=== PATIENT | male | born 1935 | race Caucasian/White ===

== ENCOUNTER 2018-07-03 09:14 | Emergency (ER) | payer MEDICARE, OTHER ==
--- NOTE | 2018-07-03 09:27 | Emergency Department Record ---
History of Present Illness - General Chief Complaint: Fall Injury Stated Complaint: FALL Time Seen by Provider: 07/03/18 09:20 Source: Patient, Family Mode of Arrival: Ambulatory Limitations: No limitations - History of Present Illness Initial Comments: 82 yo male presents after a one step fall. He hit he left eyebrow region. No LOC. No blood thinners. No headache, neck pain, confusion, other injuries. His tetanus is not up to date. No recent health concerns or changes in his baseline health. MD Complaint: Fall -: Minutes(s) Fall From: Down stairs (#) (1) When Fall Occurred: Just prior to arrival Fall Witnessed: Yes, by family Place Fall Occurred: Home Loss of Consciousness: None Prolonged Down Time?: No Symptoms Prior to Fall: None Location: Head Severity: Mild Quality: Aching Context: Tripped/slipped Associated Symptoms: Denies - Berclair Coma Scale Eye Response: (4) Open spontaneously Motor Response: (6) Obeys commands Verbal Response: (5) Oriented Rhett Total: 15 - Related Data Home Medications Medication Instructions Recorded Confirmed Last Taken Amlodipine Besylate [Norvasc] 10 mg PO DAILY 07/03/18 07/03/18 1 Day Ago ~07/02/18 Aspirin 81 mg PO DAILY 07/03/18 07/03/18 1 Day Ago ~07/02/18 Atorvastatin Calcium [Lipitor] 10 mg PO DAILY 07/03/18 07/03/18 1 Day Ago ~07/02/18 Calcium Polycarbophil [Fiber] 2 tab PO DAILY 07/03/18 07/03/18 1 Day Ago ~07/02/18 Dutasteride [Avodart] 0.5 mg PO DAILY 07/03/18 07/03/18 1 Day Ago ~07/02/18 Fish Oil/Dha/Epa [Fish Oil 1,200 1 each PO DAILY 07/03/18 07/03/18 1 Day Ago mg Fish Oil] ~07/02/18 Fluticasone Propionate [24 Hour 9.9 ml NS DAILY 07/03/18 07/03/18 1 Day Ago Allergy] ~07/02/18 Fosinopril Sodium [Monopril] 20 mg PO BID 07/03/18 07/03/18 1 Day Ago ~07/02/18 Hydralazine HCl 25 mg PO BID 07/03/18 07/03/18 1 Day Ago ~07/02/18 Hydrochlorothiazide [Hctz] 25 mg PO DAILY 07/03/18 07/03/18 1 Day Ago ~07/02/18 Isosorbide Mononitrate [Imdur] 60 mg PO DAILY 07/03/18 07/03/18 1 Day Ago ~07/02/18 Metformin HCl 500 mg PO DAILY 07/03/18 07/03/18 1 Day Ago ~07/02/18 Metoprolol Tartrate 25 mg PO BID 07/03/18 07/03/18 1 Day Ago ~07/02/18 Multivit-Min/FA/Lycopen/Lutein 1 each PO DAILY 07/03/18 07/03/18 1 Day Ago [Centrum Silver Tablet] ~07/02/18 Naproxen Sodium [Aleve] 220 mg PO QHS 07/03/18 07/03/18 1 Day Ago ~07/02/18 Omeprazole [Prilosec] 20 mg PO DAILY 07/03/18 07/03/18 1 Day Ago ~07/02/18 Allergies Allergy/AdvReac Type Severity Reaction Status Date / Time No Known Drug Allergies Allergy Verified 07/03/18 09:24 Review of Systems Constitutional: Denies: Chills, Fever, Malaise, Weakness Eyes: Denies: Eye discharge, Eye pain, Photophobia, Vision change ENT: Denies: Congestion, Throat pain Respiratory: Denies: Cough, Dyspnea Cardiovascular: Denies: Chest pain, Palpitations, Syncope Endocrine: Denies: Fatigue, Polydipsia, Polyuria Gastrointestinal: Denies: Abdominal pain, Diarrhea, Nausea, Vomiting Genitourinary: Denies: Dysuria, Frequency, Hematuria Musculoskeletal: Denies: Arthralgia, Back pain, Joint swelling, Myalgia Skin: Denies: Bruising, Change in color, Rash Neurological: Denies: Headache Psychiatric: Denies: Anxiety Hematological/Lymphatic: Denies: Easy bleeding, Easy bruising Physical Exam - General General Appearance: Alert, Oriented x3, Cooperative, No acute distress Limitations: No limitations - Head Head exam: negative: Atraumatic, Normal inspection Head exam detail: Laceration Image of Face/Head: 1 - 3cm somewhat irregular laceration, no FB, clean 2 - 1cm y shape extension on the lid, superficial - Eye Eye exam: Normal appearance, PERRL, EOMI, Periorbital tenderness (mild). negative: Conjunctival injection, Periorbital swelling, Scleral icterus Pupils: Normal accommodation. negative: Irregular, Unequal - ENT ENT exam: Normal exam Ear exam: Normal external inspection Nasal Exam: Normal inspection Mouth exam: Normal external inspection Teeth exam: Normal inspection Throat exam: Normal inspection - Neck Neck exam: Normal inspection. negative: Tenderness - Respiratory Respiratory exam: Normal lung sounds bilaterally. negative: Respiratory distress - Cardiovascular Cardiovascular Exam: Regular rate, Normal rhythm, Normal heart sounds Peripheral Pulses: 2+: Radial (R), Radial (L) - GI/Abdominal GI/Abdominal exam: Soft. negative: Distended, Guarding, Rebound, Rigid, Tenderness - Rectal Rectal exam: Deferred - exam: Deferred - Extremities Extremities exam: Normal inspection, Full ROM, Normal capillary refill. negative: Tenderness - Back Back exam: Denies: CVA tenderness (R), CVA tenderness (L) - Neurological Neurological exam: Alert, CN II-XII intact, Normal gait, Oriented X3. negative : Abnormal gait, Altered, Motor sensory deficit - Psychiatric Psychiatric exam: Normal affect, Normal mood - Skin Type of lesion: Laceration Course - Reevaluation(s) Reevaluation #1: 07/03/18 09:28 Procedure Note 3cm laceration of the forehead/eyebrow, irregular with y shape on the lid superficially Wound was cleaned and prepped in sterile fashion, no residual FB identified on examination. The wound was copiously irrigated with NS Wound was anesthetized with 3 mL of 1% Lidocaine with epinephrine The laceration was repaired with 5-0 ethilon sutures in interrupted fashion. 8 sutures placed Patient tolerated the procedure well without complications. We discussed home care, reasons for immediate return if any concerns, and suture removal in 7 days 07/03/18 10:02 The HCT and Cervical CT were read as no acute process We discussed home care, follow up in one week and reasons to return for a recheck 07/03/18 10:03 Tetanus updated 07/03/18 10:08 Disposition Disposition: Discharge Clinical Impression: Forehead contusion Qualifiers: Encounter type: initial encounter Qualified Code(s): S00.83XA - Contusion of other part of head, initial encounter Laceration of forehead Qualifiers: Encounter type: initial encounter Qualified Code(s): S01.81XA - Laceration without foreign body of other part of head, initial encounter Disposition: Home, Self-Care Condition: (1) Good Instructions: Laceration (ED) Additional Instructions: Return to the ER in 7 days for wound evaluation and possible suture removal Return to the ER for a recheck if worse, any redness, drainage, concerns for infection or new concerns or questions Review this ER visit and the tests performed with your family doctor Forms: Patient Portal Access Time of Disposition: 10:03 Quality - Quality Measures Quality Measures: N/A, Blunt Head Trauma (>2yr) - Berclair Coma Scale Berclair Coma Scale: Berclair Coma Scale Eye Response: (4) Open spontaneously Motor Response: (6) Obeys commands Verbal Response: (5) Oriented Rhett Total: 15 - Blunt Head Trauma - Adult Quality Measure: Measure #415: Utilization of CT for Minor Blunt Head Trauma ICD10 Codes Entered: Yes Was CT ordered: Yes Does Patient Have Any of the Following: No Exclusions Patient Presented Within 24 Hours of Injury: Yes Rhett Score: [address] for Minor Blunt Head Trauma: < CT Done, Appropriate Indication > [G9529] Additional Inclusion Criteria: Within 24hrs (AND) GCS of 15 (AND) CT ordered. [ G9530] Indications For CT: Age 65 Years and Older - Blood Pressure Screening Does Patient Have Any of the Following: Active Dx of HTN Blood Pressure Classification: Hypertensive Reading Systolic Measurement: 160 Diastolic Measurement: 76 Screening for High Blood Pressure: Patient Exclusion, Hx of HTN [G9744]
[2018-07-03] MEDS: Diph,Pert(Acell),Tet Vac 0.5 ML SYR IM ONE (10:17)
[2018-07-03] MEDS: TOPICAL LIDOCAINE W/ EPI 5 ML TOP ONE (10:18)
--- NOTE | 2018-07-06 08:35 | CT SCAN REPORT ---
EXAM: CT OF THE CERVICAL SPINE WITHOUT CONTRAST HISTORY: FALL. LACERATION. TECHNIQUE: Routine noncontrast CT images of the cervical spine were obtained. Comparison: None. FINDINGS: No fracture, subluxation or significant loss of vertebral body height. There is moderate to severe multilevel degenerative disk and facet disease throughout the cervical spine. Moderate atlantodental degenerative change. IMPRESSION: NO ACUTE CERVICAL SPINE ABNORMALITY. MODERATE TO SEVERE CERVICAL SPONDYLOSIS. JOB NUMBER: [id number] [facility]
--- NOTE | 2018-07-06 08:40 | CT SCAN REPORT ---
EXAM: CT OF THE HEAD WITHOUT CONTRAST HISTORY: FALL. LEFT PERIORBITAL LACERATION. TECHNIQUE: Routine noncontrast CT imaging of the head were obtained. FINDINGS: There is a moderate left periorbital/supraorbital laceration. Soft tissue swelling and foci of gas are noted. No depressed skull fracture. The ventricles, basal cisterns and sulci are prominent consistent with generalized cerebral atrophy. No midline shift or mass effect. There is periventricular hypoattenuation compatible with chronic microvascular ischemia. 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 No conclusive evidence for acute ischemia. No intracranial mass or hemorrhage. The paranasal sinuses and mastoid air cells are clear. IMPRESSION: 1. NO ACUTE INTRACRANIAL ABNORMALITY. 2. LEFT PERIORBITAL LACERATION. 3. SENESCENT CHANGES. JOB NUMBER: [id number] [facility]
== END 2018-07-03 10:18 | disposition home or self-care (01) ==
LOC: ER 09:14
DX: S01.112A Laceration without foreign body of left eyelid and periocular area, initial encounter (principal); S00.83XA Contusion of other part of head, initial encounter; M54.2 Cervicalgia; W10.9XXA Fall (on) (from) unspecified stairs and steps, initial encounter; Y92.009 Unspecified place in unspecified non-institutional (private) residence as the place of occurrence of the external cause; I10 Essential (primary) hypertension
CPT/HCPCS: 12052; 70450; 72125; 90715; 96372; 99284

== ENCOUNTER 2018-07-11 09:03 | Emergency (ER) | payer MEDICARE, OTHER ==
--- NOTE | 2018-07-11 09:15 | Emergency Department Record ---
History of Present Illness - General Chief Complaint: Suture removal Stated Complaint: SUTURE REMOVAL Time Seen by Provider: 07/11/18 09:04 Source: Patient Mode of arrival: Ambulatory Limitations: No limitations - History of Present Illness Initial Comments: The patient is here for suture removal. He denies any problems or issues. Complaint: Suture/staple removal Onset/Timin -: Days(s) Returns Today for: Staple/stitch removal, Wound recheck Symptoms Since Prior Visit: No new symptoms Associated Symptoms: None - Related Data Allergies Allergy/AdvReac Type Severity Reaction Status Date / Time No Known Drug Allergies Allergy Verified 07/11/18 09:11 Travel Screening - Travel/Exposure Within Last 30 Days Have you traveled within the last 30 days?: No - Travel/Exposure Within Last Year Have you traveled outside the [place] in the last year?: No - Additonal Travel Details Have you been exposed to anyone with a communicable illness?: No - Travel Symptoms Symptom Screening: None Past Medical History - SOCIAL HISTORY Smoking Status: Never smoker Alcohol Use: None Drug Use: None - RESPIRATORY Hx Respiratory Disorders: Yes Hx Bronchitis: Yes Hx COPD: Yes Comment:: no medications - CARDIOVASCULAR Hx Cardio Disorders: Yes Hx Pacemaker/Defib: Yes Comment:: dual chamber - NEURO Hx Neuro Disorders: No - GI Hx GI Disorders: No - Hx Genitourinary Disorders: No - ENDOCRINE Hx Endocrine Disorders: Yes Hx Diabetes: Yes (NIDDM) - MUSCULOSKELETAL Hx Musculoskeletal Disorders: Yes Hx Arthritis: Yes - PSYCH Hx Psych Problems: No Family Medical History Any Significant Family History?: Yes Physical Exam - General General Appearance: Alert, Oriented x3, Cooperative, No acute distress - Head Head exam: Normocephalic. negative: Atraumatic (The L facial forhead sutures were removed without problems.) - Eye Eye exam: Normal appearance, PERRL - Neurological Neurological exam: Alert, Normal gait. negative: Abnormal gait, Motor sensory deficit Course Vital Signs 07/11/18 09:06 Temperature 98.2 F Pulse Rate 78 Respiratory 18 Rate Blood Pressure 149/88 Pulse Ox 97 Disposition Disposition: Discharge Clinical Impression: Encounter for removal of sutures Disposition: Home, Self-Care Condition: (2) Stable Instructions: Stitches Removal (ED) Additional Instructions: Please return to the ER for any problems. Forms: Patient Portal Access Time of Disposition: 09:15 Quality - Quality Measures Quality Measures: N/A, Blunt Head Trauma (>2yr) - Blunt Head Trauma - Adult Quality Measure: Measure #415: Utilization of CT for Minor Blunt Head Trauma ICD10 Codes Entered: Yes View Details: Yes Was CT ordered: No Rhett Score: Please complete Rhett Coma Scale above Utilization of CT for Minor Blunt Head Trauma: Not Eligible For Measure Additional Inclusion Criteria: More than 24hrs (OR) GCS not 15 (OR) CT not ordered. Not Eligible Reason: CT Not Ordered - Blood Pressure Screening Does Patient Have Any of the Following: No Blood Pressure Classification: Pre-Hypertensive BP Reading Systolic Measurement: 149 Diastolic Measurement: 88 Screening for High Blood Pressure: < Pre-Hypertensive BP, F/U Documented > [ G8950] Pre-Hypertensive Follow-up Interventions: Referral to alternative/primary care provider.
== END 2018-07-11 09:17 | disposition home or self-care (01) ==
LOC: ER 09:03
DX: Z48.02 Encounter for removal of sutures (principal)